=== PATIENT | female | born 1965 | race Hispanic/Latino ===

== ENCOUNTER → 2024-10-27 | Outpatient (REF) | payer OTHER | LOC: MAMMO 07:58 | PROVIDERS: ATTEND Internal Medicine | DX: Z12.31 Encounter for screening mammogram for malignant neoplasm of breast (principal); Z13.820 Encounter for screening for osteoporosis | CPT/HCPCS: 77067; 77080 ==

== ENCOUNTER → 2024-11-25 | Outpatient (REF) | payer OTHER ==
[~2024-11-25] MED LIST: LIPITOR10 MG PO; MELOXICAM7.5 MG PO; NITROGLYCERIN0.4 MG SL; TRAZODONE HCL100 MG PO; ZESTRIL10 MG PO
== END ==
LOC: RAD 10:48 → EDSTATUS 11-29 14:00
PROVIDERS: ATTEND Internal Medicine Gastroenterology
DX: Z01.818 Encounter for other preprocedural examination (principal); Z12.11 Encounter for screening for malignant neoplasm of colon
CPT/HCPCS: 93005